=== PATIENT | male | born 1990 | race Caucasian/White ===

== ENCOUNTER 2017-03-03 12:12 | Emergency (ER) | payer BC, OTHER ==
[~2017-03-03] VITALS: Ht 185.4 cm; Wt 100.0 kg
[2017-03-03 12:13] VITALS: Ht 185.4 cm; Wt 100.0 kg
--- NOTE | 2017-03-03 13:05 | DIAGNOSTIC IMAGING REPORT ---
LEFT SHOULDER 3 VIEWS CLINICAL HISTORY: Left shoulder injury. FINDINGS: 3 views of left shoulder are obtained. No prior studies are available for comparison at the time of dictation. The skeletal structures are well mineralized. No fracture or dislocation is seen. The joint spaces of the shoulder are preserved. The overlying soft tissues are within normal limits. Imaged left lung parenchyma appears clear. IMPRESSION: Unremarkable radiographic assessment of the left shoulder. Electronically signed by: Felipe Burgos M.D. 03/03/2017 1:04 PM Dictated Date/Time: 03/03/2017 1:03 PM
[2017-03-03] MEDS ORDERED: ACETAMINOPHEN 500 MG TAB PO STA (13:19)
[2017-03-03 13:28] VITALS: BP 150/96; PULSE 63; TEMP 36.7; O2SAT 98
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
== END 2017-03-03 13:29 | disposition home or self-care (01) ==
LOC: C.EDB 12:13 → C.EDD 13:29
DX: S46.912A Strain of unspecified muscle, fascia and tendon at shoulder and upper arm level, left arm, initial encounter (principal); V43.52XA Car driver injured in collision with other type car in traffic accident, initial encounter; Y92.89 Other specified places as the place of occurrence of the external cause; Y99.0 Civilian activity done for income or pay; D45 Polycythemia vera; Z96.651 Presence of right artificial knee joint; Z87.828 Personal history of other (healed) physical injury and trauma